=== PATIENT | male | born 1960 ===

== ENCOUNTER 2019-04-10 19:51 | Emergency (ER) | payer MEDICAID ==
[~2019-04-10] VITALS: Ht 175.3 cm; Wt 66.4 kg
[2019-04-10 19:58] VITALS: BP 134/70
== END 2019-04-10 20:42 | disposition home or self-care (01) ==
LOC: ED 20:39
DX: F15.20 Other stimulant dependence, uncomplicated (principal); Z53.21 Procedure and treatment not carried out due to patient leaving prior to being seen by health care provider

== ENCOUNTER 2019-12-24 09:27 | Emergency (ER) | payer MEDICAID ==
[~2019-12-24] VITALS: Ht 175.3 cm; Wt 61.1 kg
[2019-12-24 09:38] VITALS: BP 140/94
--- NOTE | 2019-12-24 10:37 | NUR ---
TO NADIA FROM LOBBY
== END 2019-12-24 10:49 | disposition home or self-care (01) ==
LOC: ED 09:45
DX: M70.21 Olecranon bursitis, right elbow (principal); F17.210 Nicotine dependence, cigarettes, uncomplicated
CPT/HCPCS: 99283

== ENCOUNTER 2020-06-20 21:30 | Emergency (ER) | payer MEDICAID ==
[~2020-06-20] VITALS: Ht 175.3 cm; Wt 70.6 kg
[2020-06-20 21:32] VITALS: BP 156/83
[2020-06-20] MEDS ORDERED: QUETIAPINE 100MG TABLET ONE (21:52)
[2020-06-20] MEDS ORDERED: QUETIAPINE 200 MG TABLET PO ONE (22:00)
--- NOTE | 2020-06-20 22:02 | NUR ---
PT CAME IN FOR MEDICATION, NAD, MEDICATED PER JUN. Patient given discharge instructions and they have confirmed that they understand the instructions. Patient ambulatory with steady gait. DENIES ADDITIONAL QUESTIONS OR NEEDS AT THIS TIME. NO PERSONAL BELONGINGS LEFT IN ROOM AFTER DC.
== END 2020-06-20 22:03 | disposition home or self-care (01) ==
LOC: ED 21:50
DX: F25.9 Schizoaffective disorder, unspecified (principal); F31.9 Bipolar disorder, unspecified; Z76.0 Encounter for issue of repeat prescription
CPT/HCPCS: 99283

== ENCOUNTER 2020-06-23 01:43 | Emergency (ER) | payer MEDICAID ==
[~2020-06-23] VITALS: Ht 175.3 cm; Wt 69.3 kg
[2020-06-23 01:53] VITALS: BP 159/60
[2020-06-23] MEDS ORDERED: QUETIAPINE 100MG TABLET ONE (02:29)
[2020-06-23] MEDS ORDERED: QUETIAPINE 200 MG TABLET PO ONE (02:30)
== END 2020-06-23 02:56 ==
LOC: ED 02:15
DX: F25.9 Schizoaffective disorder, unspecified (principal); Z76.0 Encounter for issue of repeat prescription; Z72.9 Problem related to lifestyle, unspecified
CPT/HCPCS: 99281

== ENCOUNTER 2020-06-26 00:03 | Emergency (ER) | payer MEDICAID ==
[~2020-06-26] VITALS: Ht 175.3 cm; Wt 72.7 kg
--- NOTE | 2020-06-26 00:28 | NUR ---
Pt states having right elbow pain and swelling x 1 day. Pt with slight ROM difficulty. Slight numbness to hand.
[2020-06-26] MEDS ORDERED: KETOROLAC 60 MG/2 ML ONE (01:08)
[2020-06-26] MEDS ORDERED: KETOROLAC 60 MG/2 ML IM ONE (01:30)
[2020-06-26 02:23] VITALS: BP 138/86
== END 2020-06-26 02:26 | disposition home or self-care (01) ==
LOC: ED 02:24
DX: G89.29 Other chronic pain (principal); M25.521 Pain in right elbow; M70.21 Olecranon bursitis, right elbow; F17.210 Nicotine dependence, cigarettes, uncomplicated; Y93.89 Activity, other specified
CPT/HCPCS: 73080; 96372; 99283; 99406; J1885